=== PATIENT | female | born 1975 | race Caucasian/White ===

== ENCOUNTER 2016-12-29 13:18 | Inpatient (IN) | payer MEDICARE ==
[~2016-12-29] VITALS: Ht 160 cm; Wt 64.9 kg
[~2016-12-29 13:18] MED LIST: ACET-2902 PO; DIVA500T52 PO; FLUD25I IM; HALO5TAB23 PO; PANT40TA PO; TRIH5TAB2 PO
[2016-12-29 15:47] VITALS: BP 118/76
[2016-12-29] MEDS ORDERED: ZOLPIDEM TARTRATE 10 MG TABLET PO PRN (16:00)
[2016-12-29 16:30] VITALS: BP 118/78
[2016-12-29] MEDS ORDERED: FluPHENAZine DECANOATE 25 MG/ML IM SCH (18:30)
[2016-12-29] MEDS: DIVALPROEX SODIUM 500 MG ER TABLET PO SCH (20:00)
[2016-12-30 04:16] VITALS: BP 122/76
[2016-12-30 08:06] LABS: BASOPHILS # (AUTO) 0.01 K/uL (0.00-0.20); BASOPHILS % (AUTO) 0.2 % (0.0-2.0); EOSINOPHILS # (AUTO) 0.11 K/uL (0.00-0.70); EOSINOPHILS % (AUTO) 1.67 % (1.0-6.0); HEMATOCRIT 40.6 % (36-46); HEMOGLOBIN 13.4 g/dL (12.0-16.0); LYMPHOCYTES # (AUTO) 3.8 K/uL (1.0-4.8); LYMPHOCYTES % (AUTO) 55.5 % (22.0-44.0); MEAN CORPUSCULAR VOLUME 94 fL (80-100); MONOCYTES # (AUTO) 0.6 K/uL (0.1-1.0); MONOCYTES % (AUTO) 9.1 % (2.0-9.0); NEUTROPHILS # (AUTO) 2.3 K/uL (1.8-7.7); NEUTROPHILS % (AUTO) 33.5 % (40.0-70.0); PLATELET COUNT (AUTO) 247 K/uL (150-450); RED BLOOD CELL COUNT(AUTO) 4.32 MIL/uL (4.00-5.20); RED CELL DISTRIBUTION WIDTH 13.6 % (11.5-14.5); WHITE BLOOD COUNT (AUTO) 6.8 K/uL (4.5-11.0)
[2016-12-30] MEDS: TRIHEXYPHENIDYL HCL 5 MG TABLET PO SCH ×3 (08:13→16:17)
[2016-12-30] MEDS: DIVALPROEX SODIUM 500 MG ER TABLET PO SCH ×2 (08:13→20:19)
[2016-12-30 08:32] LABS: HEMOGLOBIN A1C 5.2 % (4.5-6.2)
[2016-12-30 08:47] LABS: ALANINE AMINOTRANSFERASE 24 U/L (12-78); ALBUMIN 3.5 g/dL (3.4-5.0); ANION GAP 10 mmol/L (8-16); ASPARTATE AMINOTRANSFERASE 17 U/L (15-37); BILIRUBIN,TOTAL 0.3 mg/dL (0.1-1.0); CALCIUM, TOTAL 9.3 mg/dL (8.8-10.5); CARBON DIOXIDE 28 mmol/L (22-29); CHLORIDE 104 mmol/L (98-107); CHOL/HDL RATIO 4.3 (3.9-5.7); CREATINE KINASE, TOTAL 63 U/L (26-192); CREATININE 0.74 mg/dL (0.60-1.30); GLOMERULAR FILTR. RATE CALC > 60 mL/min (>60); POTASSIUM 4.2 mmol/L (3.5-5.1); SODIUM SERUM 142 mmol/L (136-145); TOTAL PROTEIN, SERUM 6.6 g/dL (6.4-8.2); UREA NITROGEN, BLOOD 13 mg/dL (7-18); VALPROIC ACID 58 mcg/mL (50-100)
[2016-12-30 09:40] VITALS: BP 104/58
[2016-12-30 16:00] VITALS: BP 98/74
[2016-12-31 06:42] VITALS: BP 102/68
[2016-12-31] MEDS: TRIHEXYPHENIDYL HCL 5 MG TABLET PO SCH ×3 (08:28→16:19)
[2016-12-31] MEDS: DIVALPROEX SODIUM 500 MG ER TABLET PO SCH ×2 (08:28→20:12)
[2016-12-31 08:58] VITALS: BP 110/71
[2016-12-31 12:03] LABS: HEPATITIS Bs ANTIGEN SCREEN P Negative (Negative); HEPATITIS C AB SCREEN <0.1 s/co ratio (0.0-0.9)
[2016-12-31 16:00] VITALS: BP 106/72
[2017-01-01 06:17] VITALS: BP 110/76
[2017-01-01 08:38] VITALS: BP 106/59
[2017-01-01] MEDS: DIVALPROEX SODIUM 500 MG ER TABLET PO SCH ×2 (09:01→20:08)
[2017-01-01] MEDS: TRIHEXYPHENIDYL HCL 5 MG TABLET PO SCH ×3 (09:01→16:26)
[2017-01-01 16:22] VITALS: BP 106/68
[2017-01-02 02:50] VITALS: BP 111/70
[2017-01-02] MEDS: DIVALPROEX SODIUM 500 MG ER TABLET PO SCH ×2 (08:22→20:10)
[2017-01-02] MEDS: TRIHEXYPHENIDYL HCL 5 MG TABLET PO SCH ×3 (08:22→16:12)
[2017-01-02 08:44] VITALS: BP 100/61
[2017-01-02] MEDS ORDERED: ACETAMINOPHEN 325 MG TABLET PO PRN (12:15)
[2017-01-02 16:13] VITALS: BP 101/60
[2017-01-03 05:57] VITALS: BP 107/61
[2017-01-03] MEDS: TRIHEXYPHENIDYL HCL 5 MG TABLET PO SCH ×3 (09:10→16:32)
[2017-01-03] MEDS: DIVALPROEX SODIUM 500 MG ER TABLET PO SCH ×2 (09:10→20:43)
[2017-01-03 09:20] VITALS: BP 101/48
[2017-01-03] MEDS ORDERED: BISACODYL 5 MG EC TABLET PO PRN (13:45)
[2017-01-03 16:00] VITALS: BP 139/90
[2017-01-03] MEDS: LORazepam 2 MG TABLET PO PRN (16:32)
[2017-01-04 02:24] VITALS: BP 109/68
[2017-01-04 08:15] VITALS: BP 102/60
[2017-01-04] MEDS: TRIHEXYPHENIDYL HCL 5 MG TABLET PO SCH ×3 (09:30→16:40)
[2017-01-04] MEDS: DIVALPROEX SODIUM 500 MG ER TABLET PO SCH ×2 (09:31→20:14)
[2017-01-04 16:19] VITALS: BP 115/70
[2017-01-05 00:25] VITALS: BP 107/74
[2017-01-05] MEDS: TRIHEXYPHENIDYL HCL 5 MG TABLET PO SCH ×3 (08:38→16:15)
[2017-01-05] MEDS: DIVALPROEX SODIUM 500 MG ER TABLET PO SCH ×2 (08:38→20:20)
[2017-01-05 08:55] VITALS: BP 109/58
[2017-01-05] MEDS ORDERED: IBUPROFEN 600 MG TABLET PO PRN (10:30)
[2017-01-05 16:15] VITALS: BP 126/82
[2017-01-05] MEDS: LORazepam 2 MG TABLET PO PRN (16:15)
[2017-01-06] VITALS: BP 100/78
[2017-01-06 08:24] VITALS: BP 99/53
[2017-01-06] MEDS: TRIHEXYPHENIDYL HCL 5 MG TABLET PO SCH ×3 (08:55→16:13)
[2017-01-06] MEDS: DIVALPROEX SODIUM 500 MG ER TABLET PO SCH ×2 (08:55→21:26)
[2017-01-06 16:16] VITALS: BP 108/60
[2017-01-06] MEDS: LORazepam 2 MG TABLET PO PRN (21:24)
[2017-01-07 01:25] VITALS: BP 127/69
[2017-01-07 08:23] VITALS: BP 105/64
[2017-01-07] MEDS: TRIHEXYPHENIDYL HCL 5 MG TABLET PO SCH ×3 (09:51→16:02)
[2017-01-07] MEDS: DIVALPROEX SODIUM 500 MG ER TABLET PO SCH ×2 (09:51→20:14)
[2017-01-07] MEDS: LORazepam 2 MG TABLET PO PRN (16:02)
[2017-01-07 16:30] VITALS: BP 115/68
[2017-01-08 06:50] VITALS: BP 110/65
[2017-01-08 08:39] VITALS: BP 113/59
[2017-01-08] MEDS: DIVALPROEX SODIUM 500 MG ER TABLET PO SCH ×2 (09:45→21:19)
[2017-01-08] MEDS: TRIHEXYPHENIDYL HCL 5 MG TABLET PO SCH ×3 (09:45→16:39)
[2017-01-08 16:23] VITALS: BP 104/65
[2017-01-08] MEDS ORDERED: LORazepam 2 MG TABLET PO PRN (20:00)
[2017-01-08] MEDS ORDERED: ZOLPIDEM TARTRATE 10 MG TABLET PO PRN (20:00)
[2017-01-09 08:15] VITALS: BP 99/51
[2017-01-09] MEDS: DIVALPROEX SODIUM 500 MG ER TABLET PO SCH (08:49)
[2017-01-09] MEDS: TRIHEXYPHENIDYL HCL 5 MG TABLET PO SCH ×2 (08:49→13:04)
[2017-01-09] MEDS ORDERED: TRIH5TAB2 PO (13:57)
[2017-01-09] MEDS ORDERED: DIVA500T52 PO ×2 (13:57)
== END 2017-01-09 20:31 | disposition home or self-care (01) | DRG 885 ==
LOC: B3A 16:09
PROVIDERS: ADMIT Psychiatry & Neurology Psychiatry; ATTEND Psychiatry & Neurology Psychiatry
DX: F25.0 Schizoaffective disorder, bipolar type (principal); E78.1 Pure hyperglyceridemia; F41.9 Anxiety disorder, unspecified; F15.90 Other stimulant use, unspecified, uncomplicated; F60.9 Personality disorder, unspecified; F17.200 Nicotine dependence, unspecified, uncomplicated; R51 Headache; E87.6 Hypokalemia; K21.9 Gastro-esophageal reflux disease without esophagitis; K59.00 Constipation, unspecified; Z72.89 Other problems related to lifestyle; Z88.1 Allergy status to other antibiotic agents; Z79.899 Other long term (current) drug therapy
CPT/HCPCS: 80074; 82306; 82607; 82746; 83036; 83735; 84436; 84439; 86592; 87081; J2680

== ENCOUNTER 2018-01-29 08:44 | Inpatient (IN) | payer MEDICARE ==
[~2018-01-29] VITALS: Ht 157.5 cm; Wt 72.1 kg
[~2018-01-29 08:44] MED LIST changes: -ACET-2902 PO; -HALO5TAB23 PO; -PANT40TA PO
[2018-01-29 09:58] LABS: BASOPHILS % (AUTO) 0.9 % (0.0-2.0); EOSINOPHILS % (AUTO) 2.6 % (1.0-6.0); HEMATOCRIT 42.6 % (36-46); HEMOGLOBIN 14.6 g/dL (12.0-16.0); LYMPHOCYTES # (AUTO) 2.6 K/uL (1.0-4.8); LYMPHOCYTES % (AUTO) 37.3 % (22.0-44.0); MEAN CORPUSCULAR HEMOGLOBIN 30.2 pg (26.0-34.0); MEAN CORPUSCULAR HGB CONC 34.2 G/dL (31.0-37.0); MEAN CORPUSCULAR VOLUME 88 fL (80-100); MONOCYTES # (AUTO) 0.4 K/uL (0.1-1.0); MONOCYTES % (AUTO) 6.3 % (2.0-9.0); NEUTROPHILS # (AUTO) 3.7 K/uL (1.8-7.7); NEUTROPHILS % (AUTO) 52.9 % (40.0-70.0); PLATELET COUNT (AUTO) 281 K/uL (150-450); RED BLOOD CELL COUNT(AUTO) 4.82 MIL/uL (4.00-5.20); RED CELL DISTRIBUTION WIDTH 13.6 % (11.5-14.5)
[2018-01-29 10:07] LABS: ANION GAP 8 mmol/L (8-16); CALCIUM, TOTAL 8.4 mg/dL (8.8-10.5); CARBON DIOXIDE 27 mmol/L (22-29); CHLORIDE 107 mmol/L (98-107); CREATININE 0.54 mg/dL (0.60-1.30); GLOMERULAR FILTR. RATE CALC > 60 mL/min (>60); GLUCOSE,RANDOM 161 mg/dL (70-110); POTASSIUM 3.5 mmol/L (3.5-5.1); SODIUM SERUM 142 mmol/L (136-145); UREA NITROGEN, BLOOD 16 mg/dL (7-18)
[2018-01-29 10:12] LABS: ALANINE AMINOTRANSFERASE 21 U/L (12-78); ALBUMIN 3.3 g/dL (3.4-5.0); ALKALINE PHOSPHATASE 61 U/L (46-116); ASPARTATE AMINOTRANSFERASE 17 U/L (15-37); BILIRUBIN,TOTAL 0.3 mg/dL (0.1-1.0); TOTAL PROTEIN, SERUM 6.7 g/dL (6.4-8.2)
[2018-01-29] MEDS ORDERED: ACETAMINOPHEN 325 MG TABLET PO PRN (10:30)
[2018-01-29] MEDS ORDERED: IBUPROFEN 400 MG TABLET PO PRN (10:30)
[2018-01-29] MEDS ORDERED: DiphenhydrAMINE HCL 50 MG/ML VIAL IM ONE (10:45)
[2018-01-29] MEDS ORDERED: HALOPERIDOL LACTATE 5 MG/ML VIAL IM ONE (10:45)
[2018-01-29] MEDS ORDERED: LORazepam 2 MG/ML VIAL IM ONE (10:45)
[2018-01-29 16:20] VITALS: BP 110/60
[2018-01-29] MEDS ORDERED: PETROLATUM,WHITE 71 GM JELLY TP PRN (16:30)
[2018-01-29] MEDS ORDERED: GuaiFENesin/D-METHORPHAN [SUGAR-FREE] 200-20MG/10 ML SYRUP UDCUP PO PRN (16:30)
[2018-01-29] MEDS ORDERED: LOPERAMIDE HCL 2 MG CAPSULE PO PRN (16:30)
[2018-01-29] MEDS ORDERED: ALBUTEROL SULFATE HFA 90 MCG/PUFF 8 GM INHALER IH PRN (16:30)
[2018-01-29] MEDS ORDERED: DOCUSATE SODIUM 100 MG CAPSULE PO PRN (16:30)
[2018-01-29] MEDS ORDERED: MAGNESIUM HYDROXIDE SUSPENSION 30 ML UDCUP PO PRN (16:30)
[2018-01-29] MEDS ORDERED: CloNIDine HCL 0.1 MG TABLET PO PRN (16:30)
[2018-01-30 08:36] VITALS: BP 112/73
[2018-01-30] MEDS: LORazepam 2 MG TABLET PO PRN ×2 (14:35→21:00)
[2018-01-30] MEDS: RisperiDONE 2 MG TABLET PO SCH (20:57)
[2018-01-30] MEDS: DIVALPROEX SODIUM 500 MG DR TABLET PO SCH (20:57)
[2018-01-31 06:32] VITALS: BP 110/67
[2018-01-31 08:49] VITALS: BP 106/78
[2018-01-31] MEDS: DIVALPROEX SODIUM 500 MG DR TABLET PO SCH ×2 (09:05→21:00)
[2018-01-31] MEDS: RisperiDONE 2 MG TABLET PO SCH (21:00)
[2018-02-01 04:15] VITALS: BP 101/71
[2018-02-01 08:14] VITALS: BP 108/67
[2018-02-01 08:15] VITALS: BP 146/78
[2018-02-01] MEDS: DIVALPROEX SODIUM 500 MG DR TABLET PO SCH ×2 (08:15→20:37)
[2018-02-01] MEDS: RisperiDONE 2 MG TABLET PO SCH (20:37)
[2018-02-02 05:26] VITALS: BP 136/88
[2018-02-02 08:18] VITALS: BP 108/76
[2018-02-02] MEDS: DIVALPROEX SODIUM 500 MG DR TABLET PO SCH ×2 (09:00→21:00)
[2018-02-02] MEDS: RisperiDONE 2 MG TABLET PO SCH (21:00)
[2018-02-03] MEDS: DIVALPROEX SODIUM 500 MG DR TABLET PO SCH ×2 (09:27→20:59)
[2018-02-03] MEDS: RisperiDONE 2 MG TABLET PO SCH (20:59)
[2018-02-04 08:14] VITALS: BP 122/80
[2018-02-04] MEDS: DIVALPROEX SODIUM 500 MG DR TABLET PO SCH ×2 (08:15→20:49)
[2018-02-04] MEDS: RisperiDONE 2 MG TABLET PO SCH (20:49)
[2018-02-05 08:37] VITALS: BP 117/74
[2018-02-05] MEDS: DIVALPROEX SODIUM 500 MG DR TABLET PO SCH ×2 (09:31→20:47)
[2018-02-05] MEDS ORDERED: HALOPERIDOL LACTATE 5 MG/ML VIAL IM PRN (11:15)
[2018-02-05] MEDS: RisperiDONE 2 MG TABLET PO SCH ×2 (11:23→20:47)
[2018-02-05] MEDS: QUEtiapine FUMARATE 100 MG TABLET PO PRN (16:40)
[2018-02-06] MEDS: DIVALPROEX SODIUM 500 MG DR TABLET PO SCH ×2 (08:32→20:32)
[2018-02-06] MEDS: RisperiDONE 2 MG TABLET PO SCH ×2 (08:32→20:32)
[2018-02-06 10:06] VITALS: BP 120/69
[2018-02-07 05:02] VITALS: BP 114/76
[2018-02-07 08:40] VITALS: BP 125/78
[2018-02-07] MEDS: RisperiDONE 2 MG TABLET PO SCH ×2 (10:06→21:12)
[2018-02-07] MEDS: DIVALPROEX SODIUM 500 MG DR TABLET PO SCH ×2 (10:06→21:12)
[2018-02-07 17:34] VITALS: BP 118/63
[2018-02-08 07:11] VITALS: BP 112/68
[2018-02-08 08:00] VITALS: BP 127/54
[2018-02-08] MEDS: DIVALPROEX SODIUM 500 MG DR TABLET PO SCH ×2 (08:20→21:11)
[2018-02-08] MEDS: RisperiDONE 2 MG TABLET PO SCH ×2 (08:20→21:11)
[2018-02-08] MEDS: LORazepam 1 MG TABLET PO PRN ×2 (10:22→17:07)
[2018-02-08 17:05] VITALS: BP 122/69
[2018-02-08] MEDS: QUEtiapine FUMARATE 100 MG TABLET PO PRN (17:07)
[2018-02-09 04:30] VITALS: BP 105/80
[2018-02-09] MEDS: LORazepam 1 MG TABLET PO PRN (07:03)
[2018-02-09 08:43] VITALS: BP 112/80
[2018-02-09] MEDS: RisperiDONE 2 MG TABLET PO SCH ×2 (09:20→21:27)
[2018-02-09] MEDS: DIVALPROEX SODIUM 500 MG DR TABLET PO SCH ×2 (09:20→21:27)
[2018-02-09 16:20] VITALS: BP 117/95
[2018-02-10 07:04] VITALS: BP 118/78
[2018-02-10] MEDS: DIVALPROEX SODIUM 500 MG DR TABLET PO SCH ×2 (08:14→20:38)
[2018-02-10] MEDS: RisperiDONE 2 MG TABLET PO SCH ×2 (08:14→20:38)
[2018-02-10] MEDS: LORazepam 1 MG TABLET PO PRN (08:19)
[2018-02-10 08:56] VITALS: BP 135/77
[2018-02-11 04:54] VITALS: BP 135/82
[2018-02-11] MEDS: RisperiDONE 2 MG TABLET PO SCH ×2 (08:09→20:29)
[2018-02-11] MEDS: DIVALPROEX SODIUM 500 MG DR TABLET PO SCH ×2 (08:09→20:29)
[2018-02-11] MEDS: LORazepam 1 MG TABLET PO PRN ×2 (08:11→16:17)
[2018-02-11 08:45] VITALS: BP 109/72
[2018-02-11 16:00] VITALS: BP 105/62
[2018-02-11] MEDS: ZOLPIDEM TARTRATE 10 MG TABLET PO PRN (20:29)
[2018-02-12] MEDS: LORazepam 1 MG TABLET PO PRN ×3 (06:41→15:59)
[2018-02-12] MEDS: RisperiDONE 2 MG TABLET PO SCH ×2 (08:45→20:25)
[2018-02-12] MEDS: DIVALPROEX SODIUM 500 MG DR TABLET PO SCH ×2 (08:45→20:25)
[2018-02-12 16:14] VITALS: BP 114/71
[2018-02-13] MEDS: RisperiDONE 2 MG TABLET PO SCH ×2 (08:24→20:17)
[2018-02-13] MEDS: DIVALPROEX SODIUM 500 MG DR TABLET PO SCH ×2 (08:25→20:17)
[2018-02-13] MEDS: LORazepam 1 MG TABLET PO PRN (09:34)
[2018-02-13 09:40] VITALS: BP 112/72
[2018-02-14 05:07] VITALS: BP 110/70
[2018-02-14 08:11] VITALS: BP 111/74
[2018-02-14] MEDS: DIVALPROEX SODIUM 500 MG DR TABLET PO SCH ×2 (08:20→20:42)
[2018-02-14] MEDS: RisperiDONE 2 MG TABLET PO SCH ×2 (08:20→20:42)
[2018-02-14] MEDS: LORazepam 1 MG TABLET PO PRN ×2 (08:50→21:02)
[2018-02-15 02:50] VITALS: BP 117/72
[2018-02-15 08:22] VITALS: BP 109/81
[2018-02-15] MEDS: DIVALPROEX SODIUM 500 MG DR TABLET PO SCH ×2 (08:52→20:58)
[2018-02-15] MEDS: RisperiDONE 2 MG TABLET PO SCH (08:52)
[2018-02-15 16:07] VITALS: BP 120/78
[2018-02-15] MEDS: LORazepam 1 MG TABLET PO PRN (16:32)
[2018-02-15] MEDS: RisperiDONE 3 MG TABLET PO SCH (20:59)
[2018-02-16 07:05] VITALS: BP 116/84
[2018-02-16] MEDS: RisperiDONE 3 MG TABLET PO SCH ×2 (09:07→20:14)
[2018-02-16] MEDS: DIVALPROEX SODIUM 500 MG DR TABLET PO SCH ×2 (09:07→20:14)
[2018-02-16 09:13] VITALS: BP 107/65
[2018-02-16] MEDS: LORazepam 1 MG TABLET PO PRN (09:57)
[2018-02-16 16:10] VITALS: BP 105/68
[2018-02-17 04:38] VITALS: BP 106/72
[2018-02-17 08:14] VITALS: BP 123/65
[2018-02-17] MEDS: RisperiDONE 3 MG TABLET PO SCH ×2 (08:14→20:53)
[2018-02-17] MEDS: DIVALPROEX SODIUM 500 MG DR TABLET PO SCH ×2 (08:14→20:53)
[2018-02-17] MEDS: LORazepam 1 MG TABLET PO PRN (08:54)
[2018-02-17 16:30] VITALS: BP 115/66
[2018-02-18 08:28] VITALS: BP 123/81
[2018-02-18] MEDS: RisperiDONE 3 MG TABLET PO SCH ×2 (08:29→20:18)
[2018-02-18] MEDS: DIVALPROEX SODIUM 500 MG DR TABLET PO SCH ×2 (08:30→20:19)
[2018-02-18] MEDS: LORazepam 1 MG TABLET PO PRN ×2 (08:30→16:31)
[2018-02-19 09:03] VITALS: BP 105/62
[2018-02-19] MEDS: DIVALPROEX SODIUM 500 MG DR TABLET PO SCH ×2 (09:07→21:03)
[2018-02-19] MEDS: RisperiDONE 3 MG TABLET PO SCH ×2 (09:07→21:03)
[2018-02-19] MEDS: LORazepam 1 MG TABLET PO PRN (09:37)
[2018-02-19 16:20] VITALS: BP 119/58
[2018-02-20 06:14] VITALS: BP 124/72
[2018-02-20] MEDS: DIVALPROEX SODIUM 500 MG DR TABLET PO SCH ×2 (08:10→20:54)
[2018-02-20] MEDS: RisperiDONE 3 MG TABLET PO SCH ×2 (08:11→20:54)
[2018-02-20] MEDS: LORazepam 1 MG TABLET PO PRN (08:15)
[2018-02-20 08:16] VITALS: BP 128/71
[2018-02-20 16:00] VITALS: BP 108/64
[2018-02-21 02:29] VITALS: BP 125/76
[2018-02-21 08:23] VITALS: BP 126/82
[2018-02-21] MEDS: RisperiDONE 3 MG TABLET PO SCH ×2 (08:28→20:35)
[2018-02-21] MEDS: DIVALPROEX SODIUM 500 MG DR TABLET PO SCH ×2 (08:28→20:35)
[2018-02-21] MEDS: LORazepam 1 MG TABLET PO PRN ×2 (08:31→16:42)
[2018-02-21 16:27] VITALS: BP 132/87
[2018-02-22 07:00] VITALS: BP 127/78
[2018-02-22] MEDS: DIVALPROEX SODIUM 500 MG DR TABLET PO SCH ×2 (08:11→20:39)
[2018-02-22] MEDS: RisperiDONE 3 MG TABLET PO SCH ×2 (08:11→20:39)
[2018-02-22] MEDS: LORazepam 1 MG TABLET PO PRN ×2 (08:18→16:35)
[2018-02-22] MEDS: MUPIROCIN CALCIUM 2% 22 GM OINTMENT NASAL SCH (21:05)
[2018-02-22] MEDS: COLLOIDAL OATMEAL/DIMETH 227 GM LOTION TP SCH (21:06)
[2018-02-23] MEDS: RisperiDONE 3 MG TABLET PO SCH ×2 (09:06→20:48)
[2018-02-23] MEDS: DIVALPROEX SODIUM 500 MG DR TABLET PO SCH ×2 (09:06→20:48)
[2018-02-23] MEDS: MUPIROCIN CALCIUM 2% 22 GM OINTMENT NASAL SCH ×2 (09:09→17:10)
[2018-02-23] MEDS: COLLOIDAL OATMEAL/DIMETH 227 GM LOTION TP SCH ×3 (09:09→17:10)
[2018-02-23 12:40] VITALS: BP 109/81
[2018-02-23] MEDS: LORazepam 1 MG TABLET PO PRN (12:42)
[2018-02-23] MEDS: QUEtiapine FUMARATE 100 MG TABLET PO PRN (12:42)
[2018-02-23 16:22] VITALS: BP 122/84
[2018-02-24 06:20] VITALS: BP 105/68
[2018-02-24] MEDS: DIVALPROEX SODIUM 500 MG DR TABLET PO SCH ×2 (07:59→20:05)
[2018-02-24] MEDS: RisperiDONE 3 MG TABLET PO SCH ×2 (07:59→20:05)
[2018-02-24] MEDS: MUPIROCIN CALCIUM 2% 22 GM OINTMENT NASAL SCH ×2 (08:00→17:07)
[2018-02-24] MEDS: COLLOIDAL OATMEAL/DIMETH 227 GM LOTION TP SCH ×3 (08:00→17:07)
[2018-02-24 08:18] VITALS: BP 142/74
[2018-02-24] MEDS: LORazepam 1 MG TABLET PO PRN (08:31)
[2018-02-24 16:12] VITALS: BP 125/65
[2018-02-25 06:11] VITALS: BP 101/71
[2018-02-25 08:41] VITALS: BP 129/74
[2018-02-25] MEDS: RisperiDONE 3 MG TABLET PO SCH ×2 (08:53→20:35)
[2018-02-25] MEDS: MUPIROCIN CALCIUM 2% 22 GM OINTMENT NASAL SCH ×2 (08:54→16:01)
[2018-02-25] MEDS: COLLOIDAL OATMEAL/DIMETH 227 GM LOTION TP SCH ×3 (08:54→16:01)
[2018-02-25] MEDS: DIVALPROEX SODIUM 500 MG DR TABLET PO SCH ×2 (08:54→20:36)
[2018-02-25] MEDS: QUEtiapine FUMARATE 100 MG TABLET PO PRN (12:19)
[2018-02-25 16:13] VITALS: BP 109/68
[2018-02-26 05:27] VITALS: BP 119/63
[2018-02-26] MEDS: RisperiDONE 3 MG TABLET PO SCH ×2 (08:16→20:39)
[2018-02-26] MEDS: DIVALPROEX SODIUM 500 MG DR TABLET PO SCH ×2 (08:16→20:40)
[2018-02-26] MEDS: COLLOIDAL OATMEAL/DIMETH 227 GM LOTION TP SCH ×3 (08:22→16:52)
[2018-02-26] MEDS: MUPIROCIN CALCIUM 2% 22 GM OINTMENT NASAL SCH ×2 (08:22→16:51)
[2018-02-26] MEDS: LORazepam 1 MG TABLET PO PRN (11:14)
[2018-02-26 16:27] VITALS: BP 105/60
[2018-02-27 08:45] VITALS: BP 121/76
[2018-02-27] MEDS: DIVALPROEX SODIUM 500 MG DR TABLET PO SCH ×2 (08:47→20:19)
[2018-02-27] MEDS: MUPIROCIN CALCIUM 2% 22 GM OINTMENT NASAL SCH (08:48)
[2018-02-27] MEDS: COLLOIDAL OATMEAL/DIMETH 227 GM LOTION TP SCH ×3 (08:48→16:35)
[2018-02-27] MEDS: RisperiDONE 3 MG TABLET PO SCH ×2 (08:48→20:19)
[2018-02-27] MEDS: QUEtiapine FUMARATE 100 MG TABLET PO PRN (09:41)
[2018-02-27] MEDS ORDERED: PALIPERIDONE PALMITATE 234 MG/1.5 ML SYRINGE IM ONE (16:00)
[2018-02-27] MEDS: LORazepam 1 MG TABLET PO PRN (16:35)
[2018-02-27 16:48] VITALS: BP 115/65
[2018-02-28 08:13] VITALS: BP 131/76
[2018-02-28] MEDS: DIVALPROEX SODIUM 500 MG DR TABLET PO SCH ×2 (09:01→20:13)
[2018-02-28] MEDS: COLLOIDAL OATMEAL/DIMETH 227 GM LOTION TP SCH ×3 (09:01→16:17)
[2018-02-28] MEDS: RisperiDONE 3 MG TABLET PO SCH ×2 (09:01→20:13)
[2018-02-28] MEDS: LORazepam 1 MG TABLET PO PRN (14:14)
[2018-02-28 16:10] VITALS: BP 109/72
[2018-02-28] MEDS: QUEtiapine FUMARATE 100 MG TABLET PO PRN (16:17)
[2018-03-01] MEDS: DIVALPROEX SODIUM 500 MG DR TABLET PO SCH ×2 (08:30→20:07)
[2018-03-01] MEDS: COLLOIDAL OATMEAL/DIMETH 227 GM LOTION TP SCH ×3 (08:30→16:20)
[2018-03-01] MEDS: RisperiDONE 3 MG TABLET PO SCH ×2 (08:30→20:07)
[2018-03-01] MEDS: LORazepam 1 MG TABLET PO PRN (10:29)
[2018-03-01] MEDS ORDERED: TUBERCULIN, PURIFIED PROTEIN DERIVATIVE 5 TU/0.1 ML SYG ID ONE (10:45)
[2018-03-02] MEDS: RisperiDONE 3 MG TABLET PO SCH ×2 (09:36→20:05)
[2018-03-02] MEDS: COLLOIDAL OATMEAL/DIMETH 227 GM LOTION TP SCH ×3 (09:37→17:02)
[2018-03-02] MEDS: DIVALPROEX SODIUM 500 MG DR TABLET PO SCH ×2 (09:38→20:05)
[2018-03-02] MEDS: LORazepam 1 MG TABLET PO PRN ×2 (10:11→16:26)
[2018-03-02 10:38] VITALS: BP 115/75
[2018-03-02 16:19] VITALS: BP 109/68
[2018-03-02] MEDS: QUEtiapine FUMARATE 100 MG TABLET PO PRN (16:59)
[2018-03-03 01:35] VITALS: BP 125/75
[2018-03-03] MEDS: RisperiDONE 3 MG TABLET PO SCH ×2 (08:05→20:57)
[2018-03-03] MEDS: COLLOIDAL OATMEAL/DIMETH 227 GM LOTION TP SCH ×3 (08:05→17:21)
[2018-03-03] MEDS: DIVALPROEX SODIUM 500 MG DR TABLET PO SCH ×2 (08:05→20:57)
[2018-03-03 08:18] VITALS: BP 106/61
[2018-03-03] MEDS ORDERED: PALIPERIDONE PALMITATE 156 MG/ML SYRINGE IM ONE (09:00)
[2018-03-03] MEDS: LORazepam 1 MG TABLET PO PRN (14:45)
[2018-03-03 16:19] VITALS: BP 121/67
[2018-03-03] MEDS: QUEtiapine FUMARATE 100 MG TABLET PO PRN (17:21)
[2018-03-03] MEDS: IBUPROFEN 400 MG TABLET PO PRN (21:26)
[2018-03-04 06:42] VITALS: BP 102/65
[2018-03-04] MEDS: COLLOIDAL OATMEAL/DIMETH 227 GM LOTION TP SCH ×3 (08:02→16:40)
[2018-03-04] MEDS: RisperiDONE 3 MG TABLET PO SCH ×2 (08:03→21:20)
[2018-03-04] MEDS: DIVALPROEX SODIUM 500 MG DR TABLET PO SCH ×2 (08:03→21:19)
[2018-03-04 08:30] VITALS: BP 105/62
[2018-03-04] MEDS: ACETAMINOPHEN 325 MG TABLET PO PRN (12:32)
[2018-03-04] MEDS: LORazepam 1 MG TABLET PO PRN (12:32)
[2018-03-04 16:31] VITALS: BP 109/62
[2018-03-05 03:39] VITALS: BP 117/68
[2018-03-05 08:00] VITALS: BP 94/54
[2018-03-05] MEDS: DIVALPROEX SODIUM 500 MG DR TABLET PO SCH ×2 (09:10→20:44)
[2018-03-05] MEDS: RisperiDONE 3 MG TABLET PO SCH ×2 (09:10→20:44)
[2018-03-05] MEDS: COLLOIDAL OATMEAL/DIMETH 227 GM LOTION TP SCH ×3 (09:11→16:22)
[2018-03-05] MEDS: LORazepam 1 MG TABLET PO PRN ×2 (09:56→16:23)
[2018-03-05] MEDS: ACETAMINOPHEN 325 MG TABLET PO PRN (09:57)
[2018-03-05] MEDS: QUEtiapine FUMARATE 100 MG TABLET PO PRN (16:23)
[2018-03-05 17:02] VITALS: BP 120/82
[2018-03-06 01:00] VITALS: BP 111/70
[2018-03-06] MEDS: COLLOIDAL OATMEAL/DIMETH 227 GM LOTION TP SCH ×3 (08:23→17:00)
[2018-03-06] MEDS: RisperiDONE 3 MG TABLET PO SCH ×2 (08:26→20:13)
[2018-03-06] MEDS: DIVALPROEX SODIUM 500 MG DR TABLET PO SCH ×2 (08:26→20:13)
[2018-03-06] MEDS: LORazepam 1 MG TABLET PO PRN (12:31)
[2018-03-06 13:21] VITALS: BP 108/65
[2018-03-06 16:00] VITALS: BP 110/63
[2018-03-07 01:42] VITALS: BP 119/74
[2018-03-07 03:50] VITALS: BP 108/74
[2018-03-07] MEDS: ACETAMINOPHEN 325 MG TABLET PO PRN (04:09)
[2018-03-07 08:24] VITALS: BP 102/66
[2018-03-07] MEDS: DIVALPROEX SODIUM 500 MG DR TABLET PO SCH ×2 (08:46→20:33)
[2018-03-07] MEDS: RisperiDONE 3 MG TABLET PO SCH ×2 (08:46→20:33)
[2018-03-07] MEDS: COLLOIDAL OATMEAL/DIMETH 227 GM LOTION TP SCH ×3 (08:47→17:07)
[2018-03-07] MEDS: LORazepam 1 MG TABLET PO PRN ×2 (11:23→17:07)
[2018-03-07 16:55] VITALS: BP 114/64
[2018-03-08 08:16] VITALS: BP 107/73
[2018-03-08] MEDS: LORazepam 1 MG TABLET PO PRN ×2 (08:43→16:43)
[2018-03-08] MEDS: RisperiDONE 3 MG TABLET PO SCH ×2 (08:44→20:23)
[2018-03-08] MEDS: COLLOIDAL OATMEAL/DIMETH 227 GM LOTION TP SCH ×3 (08:46→16:43)
[2018-03-08] MEDS: DIVALPROEX SODIUM 500 MG DR TABLET PO SCH ×2 (08:46→20:23)
[2018-03-08 16:00] VITALS: BP 109/69
[2018-03-09 02:43] VITALS: BP 107/74
[2018-03-09 08:14] VITALS: BP 103/69
[2018-03-09] MEDS: COLLOIDAL OATMEAL/DIMETH 227 GM LOTION TP SCH ×3 (09:22→16:03)
[2018-03-09] MEDS: LORazepam 1 MG TABLET PO PRN (09:23)
[2018-03-09] MEDS: DIVALPROEX SODIUM 500 MG DR TABLET PO SCH ×2 (09:23→20:28)
[2018-03-09] MEDS: ACETAMINOPHEN 325 MG TABLET PO PRN ×2 (09:23→17:50)
[2018-03-09] MEDS: RisperiDONE 3 MG TABLET PO SCH ×2 (09:23→20:28)
[2018-03-09 17:24] VITALS: BP 106/79
[2018-03-10 01:40] VITALS: BP 113/79
[2018-03-10] MEDS: IBUPROFEN 400 MG TABLET PO PRN ×2 (01:46→12:36)
[2018-03-10] MEDS: RisperiDONE 3 MG TABLET PO SCH ×2 (08:20→20:48)
[2018-03-10] MEDS: DIVALPROEX SODIUM 500 MG DR TABLET PO SCH ×2 (08:21→20:48)
[2018-03-10 08:22] VITALS: BP 97/70
[2018-03-10] MEDS: COLLOIDAL OATMEAL/DIMETH 227 GM LOTION TP SCH ×3 (08:22→17:48)
[2018-03-10] MEDS: QUEtiapine FUMARATE 100 MG TABLET PO PRN (10:59)
[2018-03-10] MEDS: LORazepam 1 MG TABLET PO PRN (10:59)
[2018-03-10 17:35] VITALS: BP 121/74
[2018-03-11 02:25] VITALS: BP 124/74
[2018-03-11] MEDS: IBUPROFEN 400 MG TABLET PO PRN ×2 (02:29→18:37)
[2018-03-11] MEDS: COLLOIDAL OATMEAL/DIMETH 227 GM LOTION TP SCH ×3 (08:42→17:00)
[2018-03-11] MEDS: LORazepam 1 MG TABLET PO PRN (08:42)
[2018-03-11] MEDS: RisperiDONE 3 MG TABLET PO SCH ×2 (08:42→21:08)
[2018-03-11] MEDS: DIVALPROEX SODIUM 500 MG DR TABLET PO SCH ×2 (08:42→21:09)
[2018-03-11 16:13] VITALS: BP 114/79
[2018-03-12 06:20] VITALS: BP 104/60
[2018-03-12] MEDS: IBUPROFEN 400 MG TABLET PO PRN ×2 (08:18→16:41)
[2018-03-12] MEDS: RisperiDONE 3 MG TABLET PO SCH ×2 (08:18→20:31)
[2018-03-12] MEDS: DIVALPROEX SODIUM 500 MG DR TABLET PO SCH ×2 (08:18→20:32)
[2018-03-12] MEDS: COLLOIDAL OATMEAL/DIMETH 227 GM LOTION TP SCH ×3 (08:18→16:41)
[2018-03-12] MEDS: LORazepam 1 MG TABLET PO PRN ×2 (08:18→16:40)
[2018-03-12 08:43] VITALS: BP 104/71
[2018-03-12 16:26] VITALS: BP 115/76
[2018-03-12] MEDS: ZOLPIDEM TARTRATE 10 MG TABLET PO PRN (20:31)
[2018-03-13 04:05] VITALS: BP 113/82
[2018-03-13] MEDS: COLLOIDAL OATMEAL/DIMETH 227 GM LOTION TP SCH ×3 (08:25→16:51)
[2018-03-13] MEDS: DIVALPROEX SODIUM 500 MG DR TABLET PO SCH ×2 (08:25→20:06)
[2018-03-13] MEDS: RisperiDONE 3 MG TABLET PO SCH ×2 (08:25→20:06)
[2018-03-13] MEDS: LORazepam 1 MG TABLET PO PRN (08:25)
[2018-03-13] MEDS: IBUPROFEN 400 MG TABLET PO PRN (08:34)
[2018-03-13 08:39] VITALS: BP 115/67
[2018-03-13 16:23] VITALS: BP 114/73
[2018-03-13] MEDS: ZOLPIDEM TARTRATE 10 MG TABLET PO PRN (20:39)
[2018-03-14 07:24] VITALS: BP 109/65
[2018-03-14] MEDS: RisperiDONE 3 MG TABLET PO SCH ×2 (08:13→20:35)
[2018-03-14] MEDS: DIVALPROEX SODIUM 500 MG DR TABLET PO SCH ×2 (08:14→20:35)
[2018-03-14 08:37] VITALS: BP 98/62
[2018-03-14] MEDS: IBUPROFEN 400 MG TABLET PO PRN (08:37)
[2018-03-14 08:52] VITALS: BP 98/62
[2018-03-14] MEDS: COLLOIDAL OATMEAL/DIMETH 227 GM LOTION TP SCH ×3 (09:35→16:35)
[2018-03-14] MEDS: LORazepam 1 MG TABLET PO PRN ×2 (10:18→16:35)
[2018-03-14 17:19] VITALS: BP 114/70
[2018-03-15 07:27] VITALS: BP 108/64
[2018-03-15 08:50] VITALS: BP 100/57
[2018-03-15] MEDS: DIVALPROEX SODIUM 500 MG DR TABLET PO SCH ×2 (09:05→20:19)
[2018-03-15] MEDS: RisperiDONE 3 MG TABLET PO SCH ×2 (09:05→20:18)
[2018-03-15] MEDS: IBUPROFEN 400 MG TABLET PO PRN ×2 (09:05→17:07)
[2018-03-15] MEDS: COLLOIDAL OATMEAL/DIMETH 227 GM LOTION TP SCH ×3 (09:07→16:09)
[2018-03-15] MEDS: LORazepam 1 MG TABLET PO PRN ×2 (10:09→16:10)
[2018-03-15 17:07] VITALS: BP 112/71
[2018-03-15] MEDS: ZOLPIDEM TARTRATE 10 MG TABLET PO PRN (20:27)
[2018-03-16 06:27] VITALS: BP 110/68
[2018-03-16] MEDS: COLLOIDAL OATMEAL/DIMETH 227 GM LOTION TP SCH ×3 (09:08→17:06)
[2018-03-16] MEDS: RisperiDONE 3 MG TABLET PO SCH ×2 (09:08→20:22)
[2018-03-16] MEDS: DIVALPROEX SODIUM 500 MG DR TABLET PO SCH ×2 (09:08→20:21)
[2018-03-16] MEDS: LORazepam 1 MG TABLET PO PRN ×2 (11:55→17:06)
[2018-03-16] MEDS: QUEtiapine FUMARATE 100 MG TABLET PO PRN (12:36)
[2018-03-17 00:28] VITALS: BP 111/83
[2018-03-17] MEDS: DIVALPROEX SODIUM 500 MG DR TABLET PO SCH ×2 (08:44→20:07)
[2018-03-17] MEDS: COLLOIDAL OATMEAL/DIMETH 227 GM LOTION TP SCH ×3 (08:44→16:38)
[2018-03-17] MEDS: RisperiDONE 3 MG TABLET PO SCH (08:44)
[2018-03-17] MEDS: IBUPROFEN 400 MG TABLET PO PRN (12:23)
[2018-03-17 16:12] VITALS: BP 127/71
[2018-03-18 06:42] VITALS: BP 122/75
[2018-03-18] MEDS: DIVALPROEX SODIUM 500 MG DR TABLET PO SCH ×2 (08:10→20:49)
[2018-03-18] MEDS: COLLOIDAL OATMEAL/DIMETH 227 GM LOTION TP SCH ×3 (08:10→16:33)
[2018-03-18 08:18] VITALS: BP 119/73
[2018-03-18] MEDS: LORazepam 1 MG TABLET PO PRN ×2 (10:48→16:33)
[2018-03-18] MEDS: QUEtiapine FUMARATE 100 MG TABLET PO PRN ×2 (12:26→16:33)
[2018-03-18 16:00] VITALS: BP 112/74
[2018-03-19 01:07] VITALS: BP 110/74
[2018-03-19 08:34] VITALS: BP 104/65
[2018-03-19] MEDS: DIVALPROEX SODIUM 500 MG DR TABLET PO SCH ×2 (09:05→20:17)
[2018-03-19] MEDS: COLLOIDAL OATMEAL/DIMETH 227 GM LOTION TP SCH ×3 (09:07→16:51)
[2018-03-19] MEDS: LORazepam 1 MG TABLET PO PRN ×2 (10:35→16:51)
[2018-03-19] MEDS: QUEtiapine FUMARATE 100 MG TABLET PO PRN (11:04)
[2018-03-19 16:00] VITALS: BP 132/88
[2018-03-19] MEDS: ZOLPIDEM TARTRATE 10 MG TABLET PO PRN (20:41)
[2018-03-20 00:53] VITALS: BP 119/77
[2018-03-20 08:19] VITALS: BP 101/63
[2018-03-20] MEDS: LORazepam 1 MG TABLET PO PRN ×2 (08:31→16:39)
[2018-03-20] MEDS: COLLOIDAL OATMEAL/DIMETH 227 GM LOTION TP SCH ×3 (08:31→16:38)
[2018-03-20] MEDS: DIVALPROEX SODIUM 500 MG DR TABLET PO SCH ×2 (08:32→20:55)
[2018-03-20 16:38] VITALS: BP 112/68
[2018-03-20] MEDS: QUEtiapine FUMARATE 100 MG TABLET PO PRN (16:39)
[2018-03-20] MEDS: ZOLPIDEM TARTRATE 10 MG TABLET PO PRN (20:55)
[2018-03-21] MEDS: DIVALPROEX SODIUM 500 MG DR TABLET PO SCH ×2 (08:04→20:28)
[2018-03-21] MEDS: COLLOIDAL OATMEAL/DIMETH 227 GM LOTION TP SCH ×3 (08:04→16:14)
[2018-03-21] MEDS: LORazepam 1 MG TABLET PO PRN ×2 (08:26→16:14)
[2018-03-21 08:42] VITALS: BP 100/60
[2018-03-21 16:07] VITALS: BP 117/86
[2018-03-21] MEDS: QUEtiapine FUMARATE 100 MG TABLET PO PRN (18:01)
[2018-03-22 00:29] VITALS: BP 103/70
[2018-03-22 08:28] VITALS: BP 100/59
[2018-03-22] MEDS: DIVALPROEX SODIUM 500 MG DR TABLET PO SCH ×2 (09:36→20:13)
[2018-03-22] MEDS: COLLOIDAL OATMEAL/DIMETH 227 GM LOTION TP SCH ×3 (09:36→17:20)
[2018-03-22] MEDS: LORazepam 1 MG TABLET PO PRN (17:10)
[2018-03-22] MEDS: QUEtiapine FUMARATE 100 MG TABLET PO PRN (17:11)
[2018-03-22 18:45] VITALS: BP 122/75
[2018-03-22] MEDS: ZOLPIDEM TARTRATE 10 MG TABLET PO PRN (20:12)
[2018-03-23 01:36] VITALS: BP 104/67
[2018-03-23] MEDS: QUEtiapine FUMARATE 100 MG TABLET PO PRN (08:10)
[2018-03-23] MEDS: LORazepam 1 MG TABLET PO PRN ×2 (08:11→16:12)
[2018-03-23] MEDS: DIVALPROEX SODIUM 500 MG DR TABLET PO SCH ×2 (08:11→20:00)
[2018-03-23] MEDS: COLLOIDAL OATMEAL/DIMETH 227 GM LOTION TP SCH ×3 (08:11→16:12)
[2018-03-23 16:14] VITALS: BP 103/69
[2018-03-23] MEDS: ZOLPIDEM TARTRATE 10 MG TABLET PO PRN (20:00)
[2018-03-24 04:48] VITALS: BP 120/76
[2018-03-24 08:00] VITALS: BP 109/72
[2018-03-24] MEDS: DIVALPROEX SODIUM 500 MG DR TABLET PO SCH ×2 (08:16→20:49)
[2018-03-24] MEDS: COLLOIDAL OATMEAL/DIMETH 227 GM LOTION TP SCH ×3 (08:16→16:11)
[2018-03-24] MEDS: LORazepam 1 MG TABLET PO PRN ×2 (08:28→16:11)
[2018-03-24 16:10] VITALS: BP 112/72
[2018-03-25 07:16] VITALS: BP 115/78
[2018-03-25 08:32] VITALS: BP 106/71
[2018-03-25] MEDS: DIVALPROEX SODIUM 500 MG DR TABLET PO SCH ×2 (08:34→21:06)
[2018-03-25] MEDS: COLLOIDAL OATMEAL/DIMETH 227 GM LOTION TP SCH ×3 (08:34→17:21)
[2018-03-25] MEDS: LORazepam 1 MG TABLET PO PRN ×2 (12:04→17:22)
[2018-03-25] MEDS: QUEtiapine FUMARATE 100 MG TABLET PO PRN ×2 (12:05→17:22)
[2018-03-25 16:57] VITALS: BP 105/63
[2018-03-25] MEDS: ZOLPIDEM TARTRATE 10 MG TABLET PO PRN (21:06)
[2018-03-26 06:29] VITALS: BP 115/66
[2018-03-26] MEDS: DIVALPROEX SODIUM 500 MG DR TABLET PO SCH ×2 (08:04→20:47)
[2018-03-26 08:17] VITALS: BP 100/62
[2018-03-26] MEDS: COLLOIDAL OATMEAL/DIMETH 227 GM LOTION TP SCH ×3 (08:26→17:07)
[2018-03-26] MEDS: LORazepam 1 MG TABLET PO PRN ×2 (12:25→17:07)
[2018-03-26] MEDS: QUEtiapine FUMARATE 100 MG TABLET PO PRN (13:41)
[2018-03-26 16:43] VITALS: BP 114/84
[2018-03-26] MEDS: ZOLPIDEM TARTRATE 10 MG TABLET PO PRN (20:47)
[2018-03-27 06:49] VITALS: BP 112/71
[2018-03-27] MEDS: COLLOIDAL OATMEAL/DIMETH 227 GM LOTION TP SCH ×3 (08:23→16:06)
[2018-03-27] MEDS: DIVALPROEX SODIUM 500 MG DR TABLET PO SCH ×2 (08:23→20:10)
[2018-03-27 08:33] VITALS: BP 100/63
[2018-03-27] MEDS: LORazepam 1 MG TABLET PO PRN ×2 (11:54→16:05)
[2018-03-27 16:34] VITALS: BP 123/87
[2018-03-27] MEDS: ZOLPIDEM TARTRATE 10 MG TABLET PO PRN (21:15)
[2018-03-28 02:28] VITALS: BP 119/75
[2018-03-28] MEDS: IBUPROFEN 400 MG TABLET PO PRN ×2 (02:28→17:24)
[2018-03-28] MEDS: DIVALPROEX SODIUM 500 MG DR TABLET PO SCH ×2 (08:28→20:51)
[2018-03-28] MEDS: COLLOIDAL OATMEAL/DIMETH 227 GM LOTION TP SCH ×3 (08:28→17:23)
[2018-03-28] MEDS: LORazepam 1 MG TABLET PO PRN ×2 (09:13→17:23)
[2018-03-28 16:21] VITALS: BP 118/68
[2018-03-28] MEDS: QUEtiapine FUMARATE 100 MG TABLET PO PRN (17:23)
[2018-03-28] MEDS: ZOLPIDEM TARTRATE 10 MG TABLET PO PRN (20:51)
[2018-03-29 07:12] VITALS: BP 110/68
[2018-03-29 08:21] VITALS: BP 109/56
[2018-03-29] MEDS: DIVALPROEX SODIUM 500 MG DR TABLET PO SCH ×2 (09:41→20:32)
[2018-03-29] MEDS: COLLOIDAL OATMEAL/DIMETH 227 GM LOTION TP SCH ×3 (10:03→17:09)
[2018-03-29] MEDS: QUEtiapine FUMARATE 100 MG TABLET PO PRN (10:16)
[2018-03-29] MEDS: LORazepam 1 MG TABLET PO PRN (10:17)
[2018-03-30 08:21] VITALS: BP 110/56
[2018-03-30] MEDS: LORazepam 1 MG TABLET PO PRN ×2 (08:23→16:25)
[2018-03-30] MEDS: DIVALPROEX SODIUM 500 MG DR TABLET PO SCH ×2 (08:23→20:42)
[2018-03-30] MEDS: COLLOIDAL OATMEAL/DIMETH 227 GM LOTION TP SCH ×3 (08:24→17:32)
[2018-03-30] MEDS: BENZTROPINE MESYLATE 0.5 MG TABLET PO SCH ×2 (09:05→20:41)
[2018-03-30] MEDS: NICOTINE 14 MG/24 HOUR PATCH TD SCH (09:30)
[2018-03-30 16:13] VITALS: BP 114/74
[2018-03-31] VITALS: BP 100/76
[2018-03-31 08:20] VITALS: BP 100/55
[2018-03-31] MEDS: DIVALPROEX SODIUM 500 MG DR TABLET PO SCH ×2 (08:48→21:07)
[2018-03-31] MEDS: NICOTINE 14 MG/24 HOUR PATCH TD SCH (08:49)
[2018-03-31] MEDS: COLLOIDAL OATMEAL/DIMETH 227 GM LOTION TP SCH ×3 (08:50→17:02)
[2018-03-31] MEDS: BENZTROPINE MESYLATE 0.5 MG TABLET PO SCH ×2 (08:59→21:06)
[2018-03-31] MEDS: PALIPERIDONE PALMITATE 234 MG/1.5 ML SYRINGE IM SCH (09:00)
[2018-03-31] MEDS: LORazepam 1 MG TABLET PO PRN ×2 (09:47→14:36)
[2018-03-31] MEDS: QUEtiapine FUMARATE 100 MG TABLET PO PRN (12:51)
[2018-03-31 16:12] VITALS: BP 115/82
[2018-03-31] MEDS: ZOLPIDEM TARTRATE 10 MG TABLET PO PRN (21:07)
[2018-04-01 01:46] VITALS: BP 113/73
[2018-04-01 08:16] VITALS: BP 114/76
[2018-04-01] MEDS: NICOTINE 14 MG/24 HOUR PATCH TD SCH (08:24)
[2018-04-01] MEDS: DIVALPROEX SODIUM 500 MG DR TABLET PO SCH ×2 (08:25→21:43)
[2018-04-01] MEDS: BENZTROPINE MESYLATE 0.5 MG TABLET PO SCH ×2 (08:25→21:44)
[2018-04-01] MEDS: LORazepam 1 MG TABLET PO PRN ×2 (08:25→13:32)
[2018-04-01] MEDS: COLLOIDAL OATMEAL/DIMETH 227 GM LOTION TP SCH ×3 (08:25→16:49)
[2018-04-01] MEDS: QUEtiapine FUMARATE 100 MG TABLET PO PRN ×2 (11:50→16:49)
[2018-04-01 18:45] VITALS: BP 118/79
[2018-04-01] MEDS: ZOLPIDEM TARTRATE 10 MG TABLET PO PRN (21:44)
[2018-04-02] VITALS: BP 101/62
[2018-04-02] MEDS: BENZTROPINE MESYLATE 0.5 MG TABLET PO SCH ×2 (08:10→21:18)
[2018-04-02] MEDS: DIVALPROEX SODIUM 500 MG DR TABLET PO SCH ×2 (08:10→21:18)
[2018-04-02] MEDS: LORazepam 1 MG TABLET PO PRN (08:11)
[2018-04-02] MEDS: QUEtiapine FUMARATE 100 MG TABLET PO PRN (08:11)
[2018-04-02] MEDS: NICOTINE 14 MG/24 HOUR PATCH TD SCH (08:11)
[2018-04-02] MEDS: COLLOIDAL OATMEAL/DIMETH 227 GM LOTION TP SCH ×3 (08:12→17:57)
[2018-04-02 08:24] VITALS: BP 114/72
[2018-04-02] MEDS: IBUPROFEN 400 MG TABLET PO PRN (15:08)
[2018-04-02 16:29] VITALS: BP 113/68
[2018-04-02] MEDS: ZOLPIDEM TARTRATE 10 MG TABLET PO PRN (21:22)
[2018-04-03 03:10] VITALS: BP 104/65
[2018-04-03] MEDS: DIVALPROEX SODIUM 500 MG DR TABLET PO SCH ×2 (08:26→20:21)
[2018-04-03] MEDS: BENZTROPINE MESYLATE 0.5 MG TABLET PO SCH ×2 (08:26→20:22)
[2018-04-03] MEDS: COLLOIDAL OATMEAL/DIMETH 227 GM LOTION TP SCH ×3 (08:26→16:18)
[2018-04-03] MEDS: NICOTINE 14 MG/24 HOUR PATCH TD SCH (08:26)
[2018-04-03 08:28] VITALS: BP 114/66
[2018-04-03] MEDS: LORazepam 1 MG TABLET PO PRN ×2 (08:36→16:18)
[2018-04-03 17:24] VITALS: BP 111/66
[2018-04-03] MEDS: ZOLPIDEM TARTRATE 10 MG TABLET PO PRN (20:21)
[2018-04-04 07:08] VITALS: BP 115/75
[2018-04-04] MEDS: BENZTROPINE MESYLATE 0.5 MG TABLET PO SCH (08:10)
[2018-04-04] MEDS: NICOTINE 14 MG/24 HOUR PATCH TD SCH (08:11)
[2018-04-04] MEDS: DIVALPROEX SODIUM 500 MG DR TABLET PO SCH ×2 (08:11→20:27)
[2018-04-04] MEDS: COLLOIDAL OATMEAL/DIMETH 227 GM LOTION TP SCH ×3 (08:12→16:09)
[2018-04-04 08:13] VITALS: BP 114/72
[2018-04-04] MEDS: LORazepam 1 MG TABLET PO PRN (09:35)
[2018-04-04] MEDS: QUEtiapine FUMARATE 100 MG TABLET PO PRN ×2 (10:01→16:08)
[2018-04-04] MEDS ORDERED: BENZTROPINE MESYLATE 0.5 MG TABLET PO ONE (11:15)
[2018-04-04] MEDS: BENZTROPINE MESYLATE 1 MG TABLET PO SCH (20:27)
[2018-04-04] MEDS: ZOLPIDEM TARTRATE 10 MG TABLET PO PRN (21:22)
[2018-04-05 04:48] VITALS: BP 117/67
[2018-04-05] MEDS: NICOTINE 14 MG/24 HOUR PATCH TD SCH (08:12)
[2018-04-05] MEDS: BENZTROPINE MESYLATE 1 MG TABLET PO SCH ×2 (08:12→20:30)
[2018-04-05] MEDS: DIVALPROEX SODIUM 500 MG DR TABLET PO SCH ×2 (08:12→20:30)
[2018-04-05 08:18] VITALS: BP 100/60
[2018-04-05] MEDS: COLLOIDAL OATMEAL/DIMETH 227 GM LOTION TP SCH ×3 (09:01→17:25)
[2018-04-05] MEDS: LORazepam 1 MG TABLET PO PRN ×2 (09:56→17:31)
[2018-04-05] MEDS: QUEtiapine FUMARATE 100 MG TABLET PO PRN (12:10)
[2018-04-05 16:17] VITALS: BP 127/93
[2018-04-05] MEDS: ZOLPIDEM TARTRATE 10 MG TABLET PO PRN (20:30)
[2018-04-06 03:30] VITALS: BP 101/73
[2018-04-06] MEDS: LORazepam 1 MG TABLET PO PRN ×2 (08:50→16:36)
[2018-04-06] MEDS: BENZTROPINE MESYLATE 1 MG TABLET PO SCH ×2 (08:51→20:23)
[2018-04-06] MEDS: NICOTINE 14 MG/24 HOUR PATCH TD SCH (08:51)
[2018-04-06] MEDS: COLLOIDAL OATMEAL/DIMETH 227 GM LOTION TP SCH ×3 (08:51→16:36)
[2018-04-06] MEDS: DIVALPROEX SODIUM 500 MG DR TABLET PO SCH ×2 (08:51→20:23)
[2018-04-06] MEDS: QUEtiapine FUMARATE 100 MG TABLET PO PRN (13:05)
[2018-04-06 16:18] VITALS: BP 111/74
[2018-04-07 00:50] VITALS: BP 104/76
[2018-04-07] MEDS: NICOTINE 14 MG/24 HOUR PATCH TD SCH (08:14)
[2018-04-07] MEDS: DIVALPROEX SODIUM 500 MG DR TABLET PO SCH ×2 (08:14→21:26)
[2018-04-07] MEDS: BENZTROPINE MESYLATE 1 MG TABLET PO SCH ×2 (08:14→21:39)
[2018-04-07] MEDS: COLLOIDAL OATMEAL/DIMETH 227 GM LOTION TP SCH ×3 (08:14→17:56)
[2018-04-07 08:26] VITALS: BP 115/54
[2018-04-07] MEDS: LORazepam 1 MG TABLET PO PRN ×2 (10:31→17:56)
[2018-04-07] MEDS: QUEtiapine FUMARATE 100 MG TABLET PO PRN (10:48)
[2018-04-07 16:11] VITALS: BP 109/74
[2018-04-07] MEDS: ZOLPIDEM TARTRATE 10 MG TABLET PO PRN (21:25)
[2018-04-08 02:50] VITALS: BP 106/65
[2018-04-08 08:26] VITALS: BP 100/52
[2018-04-08] MEDS: BENZTROPINE MESYLATE 1 MG TABLET PO SCH ×2 (09:02→20:09)
[2018-04-08] MEDS: LORazepam 1 MG TABLET PO PRN ×2 (09:02→16:08)
[2018-04-08] MEDS: DIVALPROEX SODIUM 500 MG DR TABLET PO SCH ×2 (09:02→20:09)
[2018-04-08] MEDS: NICOTINE 14 MG/24 HOUR PATCH TD SCH (09:02)
[2018-04-08] MEDS: COLLOIDAL OATMEAL/DIMETH 227 GM LOTION TP SCH ×3 (09:04→16:26)
[2018-04-08] MEDS: QUEtiapine FUMARATE 100 MG TABLET PO PRN (12:09)
[2018-04-08 17:30] VITALS: BP 118/84
[2018-04-08] MEDS: ZOLPIDEM TARTRATE 10 MG TABLET PO PRN (20:09)
[2018-04-09 00:25] VITALS: BP 100/62
[2018-04-09 08:32] VITALS: BP 103/60
[2018-04-09] MEDS: NICOTINE 14 MG/24 HOUR PATCH TD SCH (08:45)
[2018-04-09] MEDS: DIVALPROEX SODIUM 500 MG DR TABLET PO SCH ×2 (08:46→20:05)
[2018-04-09] MEDS: BENZTROPINE MESYLATE 1 MG TABLET PO SCH ×2 (08:46→20:05)
[2018-04-09] MEDS: COLLOIDAL OATMEAL/DIMETH 227 GM LOTION TP SCH ×3 (08:46→16:15)
[2018-04-09] MEDS: QUEtiapine FUMARATE 100 MG TABLET PO PRN ×2 (09:03→16:15)
[2018-04-09] MEDS: LORazepam 1 MG TABLET PO PRN ×2 (09:03→16:15)
[2018-04-09 16:39] VITALS: BP 123/99
[2018-04-09] MEDS: ZOLPIDEM TARTRATE 10 MG TABLET PO PRN (20:05)
[2018-04-10 00:47] VITALS: BP 105/64
[2018-04-10] MEDS: COLLOIDAL OATMEAL/DIMETH 227 GM LOTION TP SCH ×3 (08:09→16:52)
[2018-04-10] MEDS: NICOTINE 14 MG/24 HOUR PATCH TD SCH (08:10)
[2018-04-10] MEDS: BENZTROPINE MESYLATE 1 MG TABLET PO SCH ×2 (08:10→20:49)
[2018-04-10] MEDS: DIVALPROEX SODIUM 500 MG DR TABLET PO SCH ×2 (08:11→20:49)
[2018-04-10 08:18] VITALS: BP 99/58
[2018-04-10] MEDS: LORazepam 1 MG TABLET PO PRN ×2 (10:45→17:21)
[2018-04-10] MEDS: QUEtiapine FUMARATE 100 MG TABLET PO PRN ×2 (12:39→17:21)
[2018-04-10] MEDS: IBUPROFEN 400 MG TABLET PO PRN (13:59)
[2018-04-10 16:09] VITALS: BP 147/59
[2018-04-10] MEDS: ZOLPIDEM TARTRATE 10 MG TABLET PO PRN (21:13)
[2018-04-11] VITALS: BP 112/72
[2018-04-11] MEDS: NICOTINE 14 MG/24 HOUR PATCH TD SCH (08:48)
[2018-04-11] MEDS: COLLOIDAL OATMEAL/DIMETH 227 GM LOTION TP SCH ×3 (08:48→16:34)
[2018-04-11] MEDS: BENZTROPINE MESYLATE 1 MG TABLET PO SCH ×2 (08:49→20:26)
[2018-04-11] MEDS: DIVALPROEX SODIUM 500 MG DR TABLET PO SCH ×2 (08:50→20:26)
[2018-04-11] MEDS: LORazepam 1 MG TABLET PO PRN ×2 (09:56→16:59)
[2018-04-11 10:00] VITALS: BP 97/60
[2018-04-11] MEDS: QUEtiapine FUMARATE 100 MG TABLET PO PRN ×2 (10:36→17:00)
[2018-04-11 17:07] VITALS: BP 111/68
[2018-04-12 07:18] VITALS: BP 106/64
[2018-04-12 09:29] VITALS: BP 104/64
[2018-04-12] MEDS: NICOTINE 14 MG/24 HOUR PATCH TD SCH (09:32)
[2018-04-12] MEDS: DIVALPROEX SODIUM 500 MG DR TABLET PO SCH ×2 (09:32→20:22)
[2018-04-12] MEDS: BENZTROPINE MESYLATE 1 MG TABLET PO SCH ×2 (09:32→20:22)
[2018-04-12] MEDS: COLLOIDAL OATMEAL/DIMETH 227 GM LOTION TP SCH ×3 (09:33→16:57)
[2018-04-12] MEDS: LORazepam 1 MG TABLET PO PRN ×2 (09:58→16:57)
[2018-04-12] MEDS: QUEtiapine FUMARATE 100 MG TABLET PO PRN (09:58)
[2018-04-12] MEDS: MAG HYDROX/AL HYDROX/SIMETH ES 30 ML SUSPENSION UDCUP PO PRN (10:21)
[2018-04-12 16:35] VITALS: BP 122/86
[2018-04-13 00:30] VITALS: BP 122/66
[2018-04-13] MEDS: ZOLPIDEM TARTRATE 10 MG TABLET PO PRN (00:40)
[2018-04-13 08:38] VITALS: BP 111/64
[2018-04-13] MEDS: BENZTROPINE MESYLATE 1 MG TABLET PO SCH ×2 (08:40→21:06)
[2018-04-13] MEDS: DIVALPROEX SODIUM 500 MG DR TABLET PO SCH ×2 (08:40→21:05)
[2018-04-13] MEDS: COLLOIDAL OATMEAL/DIMETH 227 GM LOTION TP SCH ×3 (08:45→17:09)
[2018-04-13] MEDS: NICOTINE 14 MG/24 HOUR PATCH TD SCH (08:45)
[2018-04-13] MEDS: LORazepam 1 MG TABLET PO PRN ×2 (10:10→17:33)
[2018-04-13] MEDS: ACETAMINOPHEN 325 MG TABLET PO PRN (13:08)
[2018-04-13 17:34] VITALS: BP 123/81
[2018-04-13] MEDS: ONDANSETRON HCL 4 MG TABLET PO PRN (18:09)
[2018-04-14] VITALS: BP 105/72
[2018-04-14] MEDS: NICOTINE 14 MG/24 HOUR PATCH TD SCH (09:33)
[2018-04-14] MEDS: COLLOIDAL OATMEAL/DIMETH 227 GM LOTION TP SCH ×3 (09:33→17:19)
[2018-04-14] MEDS: BENZTROPINE MESYLATE 1 MG TABLET PO SCH ×2 (09:33→20:16)
[2018-04-14] MEDS: DIVALPROEX SODIUM 500 MG DR TABLET PO SCH ×2 (09:33→20:16)
[2018-04-14] MEDS: QUEtiapine FUMARATE 100 MG TABLET PO PRN (12:39)
[2018-04-14] MEDS: LORazepam 1 MG TABLET PO PRN (12:40)
[2018-04-14 13:06] VITALS: BP 126/94
[2018-04-14 16:59] VITALS: BP 126/90
[2018-04-15 00:24] VITALS: BP 103/67
[2018-04-15] MEDS: LORazepam 1 MG TABLET PO PRN (07:18)
[2018-04-15] MEDS: QUEtiapine FUMARATE 100 MG TABLET PO PRN (07:18)
[2018-04-15] MEDS: DIVALPROEX SODIUM 500 MG DR TABLET PO SCH ×2 (08:02→20:18)
[2018-04-15] MEDS: BENZTROPINE MESYLATE 1 MG TABLET PO SCH ×2 (08:02→20:18)
[2018-04-15] MEDS: COLLOIDAL OATMEAL/DIMETH 227 GM LOTION TP SCH ×3 (08:03→16:17)
[2018-04-15] MEDS: NICOTINE 14 MG/24 HOUR PATCH TD SCH (08:03)
[2018-04-15 10:48] VITALS: BP 124/81
[2018-04-15 12:19] VITALS: BP 124/81
[2018-04-15] MEDS: ACETAMINOPHEN 325 MG TABLET PO PRN (12:19)
[2018-04-15 16:06] VITALS: BP 137/90
[2018-04-16 00:15] VITALS: BP 102/75
[2018-04-16 08:30] VITALS: BP 97/69
[2018-04-16] MEDS: COLLOIDAL OATMEAL/DIMETH 227 GM LOTION TP SCH ×3 (09:19→16:22)
[2018-04-16] MEDS: DIVALPROEX SODIUM 500 MG DR TABLET PO SCH ×2 (09:19→20:39)
[2018-04-16] MEDS: BENZTROPINE MESYLATE 1 MG TABLET PO SCH ×2 (09:19→20:39)
[2018-04-16] MEDS: NICOTINE 14 MG/24 HOUR PATCH TD SCH (09:19)
[2018-04-16] MEDS: QUEtiapine FUMARATE 100 MG TABLET PO PRN ×2 (10:03→16:22)
[2018-04-16] MEDS: LORazepam 1 MG TABLET PO PRN ×2 (10:03→16:21)
[2018-04-16 17:10] VITALS: BP 107/77
[2018-04-16] MEDS: ZOLPIDEM TARTRATE 10 MG TABLET PO PRN (20:39)
[2018-04-17] MEDS: DIVALPROEX SODIUM 500 MG DR TABLET PO SCH ×2 (08:04→20:27)
[2018-04-17] MEDS: BENZTROPINE MESYLATE 1 MG TABLET PO SCH ×2 (08:04→20:27)
[2018-04-17] MEDS: COLLOIDAL OATMEAL/DIMETH 227 GM LOTION TP SCH ×3 (08:04→16:49)
[2018-04-17 08:21] VITALS: BP 106/62
[2018-04-17] MEDS: NICOTINE 14 MG/24 HOUR PATCH TD SCH (08:23)
[2018-04-17] MEDS: IBUPROFEN 400 MG TABLET PO PRN ×2 (10:19→16:48)
[2018-04-17] MEDS: LORazepam 1 MG TABLET PO PRN ×2 (10:19→16:48)
[2018-04-17 16:36] VITALS: BP 136/95
[2018-04-17] MEDS: QUEtiapine FUMARATE 100 MG TABLET PO PRN (16:48)
[2018-04-17] MEDS: ZOLPIDEM TARTRATE 10 MG TABLET PO PRN (20:28)
[2018-04-18 01:00] VITALS: BP 106/72
[2018-04-18] MEDS: IBUPROFEN 400 MG TABLET PO PRN ×2 (01:07→09:48)
[2018-04-18 08:19] VITALS: BP 100/60
[2018-04-18] MEDS: NICOTINE 14 MG/24 HOUR PATCH TD SCH (08:19)
[2018-04-18] MEDS: COLLOIDAL OATMEAL/DIMETH 227 GM LOTION TP SCH ×3 (08:19→16:53)
[2018-04-18] MEDS: BENZTROPINE MESYLATE 1 MG TABLET PO SCH ×2 (08:20→20:37)
[2018-04-18] MEDS: DIVALPROEX SODIUM 500 MG DR TABLET PO SCH ×2 (08:20→20:37)
[2018-04-18] MEDS: LORazepam 1 MG TABLET PO PRN ×2 (09:48→16:55)
[2018-04-18] MEDS: QUEtiapine FUMARATE 100 MG TABLET PO PRN (13:06)
[2018-04-18] MEDS: MAG HYDROX/AL HYDROX/SIMETH ES 30 ML SUSPENSION UDCUP PO PRN (14:28)
[2018-04-18 16:09] VITALS: BP 135/91
[2018-04-19 04:54] VITALS: BP 129/89
[2018-04-19] MEDS: IBUPROFEN 400 MG TABLET PO PRN ×2 (04:55→13:51)
[2018-04-19 04:56] VITALS: BP 129/69
[2018-04-19] MEDS: COLLOIDAL OATMEAL/DIMETH 227 GM LOTION TP SCH ×3 (08:01→16:54)
[2018-04-19] MEDS: NICOTINE 14 MG/24 HOUR PATCH TD SCH (08:02)
[2018-04-19] MEDS: DIVALPROEX SODIUM 500 MG DR TABLET PO SCH ×2 (08:02→20:34)
[2018-04-19] MEDS: BENZTROPINE MESYLATE 1 MG TABLET PO SCH ×2 (08:02→20:35)
[2018-04-19 08:27] VITALS: BP 100/58
[2018-04-19] MEDS: QUEtiapine FUMARATE 100 MG TABLET PO PRN (10:23)
[2018-04-19] MEDS: LORazepam 1 MG TABLET PO PRN (10:23)
[2018-04-19 13:52] VITALS: BP 108/70
[2018-04-19] MEDS: ACETAMINOPHEN 325 MG TABLET PO PRN (15:54)
[2018-04-19] MEDS: ZOLPIDEM TARTRATE 10 MG TABLET PO PRN (20:35)
[2018-04-20] VITALS: BP 105/80
[2018-04-20] MEDS: IBUPROFEN 400 MG TABLET PO PRN (03:25)
[2018-04-20 07:21] LABS: BASOPHILS % (AUTO) 0.7 % (0.0-2.0); HEMATOCRIT 39.9 % (36-46); HEMOGLOBIN 13.7 g/dL (12.0-16.0); LYMPHOCYTES # (AUTO) 2.5 K/uL (1.0-4.8); LYMPHOCYTES % (AUTO) 39.2 % (22.0-44.0); MEAN CORPUSCULAR HEMOGLOBIN 31.4 pg (26.0-34.0); MEAN CORPUSCULAR HGB CONC 34.4 G/dL (31.0-37.0); MEAN CORPUSCULAR VOLUME 91 fL (80-100); MONOCYTES # (AUTO) 0.7 K/uL (0.1-1.0); MONOCYTES % (AUTO) 10.4 % (2.0-9.0); NEUTROPHILS % (AUTO) 46.7 % (40.0-70.0); PLATELET COUNT (AUTO) 262 K/uL (150-450); RED BLOOD CELL COUNT(AUTO) 4.37 MIL/uL (4.00-5.20)
[2018-04-20 07:32] LABS: ANION GAP 5 mmol/L (8-16); CALCIUM, TOTAL 8.7 mg/dL (8.8-10.5); CARBON DIOXIDE 32 mmol/L (22-29); CHLORIDE 100 mmol/L (98-107); CREATININE 0.65 mg/dL (0.60-1.30); GLOMERULAR FILTR. RATE CALC > 60 mL/min (>60); GLUCOSE,RANDOM 91 mg/dL (70-110); POTASSIUM 4.8 mmol/L (3.5-5.1); SODIUM SERUM 137 mmol/L (136-145); UREA NITROGEN, BLOOD 17 mg/dL (7-18)
[2018-04-20] MEDS: COLLOIDAL OATMEAL/DIMETH 227 GM LOTION TP SCH ×3 (08:11→16:17)
[2018-04-20 08:12] VITALS: BP 103/63
[2018-04-20] MEDS: NICOTINE 14 MG/24 HOUR PATCH TD SCH (08:12)
[2018-04-20] MEDS: BENZTROPINE MESYLATE 1 MG TABLET PO SCH ×2 (08:12→20:33)
[2018-04-20] MEDS: DIVALPROEX SODIUM 500 MG DR TABLET PO SCH ×2 (08:12→20:33)
[2018-04-20] MEDS: QUEtiapine FUMARATE 100 MG TABLET PO PRN (11:16)
[2018-04-20] MEDS: LORazepam 1 MG TABLET PO PRN (11:16)
[2018-04-20 12:35] VITALS: BP 122/72
[2018-04-20] MEDS: ACETAMINOPHEN 325 MG TABLET PO PRN (12:35)
[2018-04-20 13:35] VITALS: BP 112/70
[2018-04-20 16:10] VITALS: BP 125/76
[2018-04-20 17:04] VITALS: BP 122/86
[2018-04-20] MEDS: BENZOCAINE 10% 7 GM GEL TP PRN (17:04)
[2018-04-21 00:09] VITALS: BP 100/65
[2018-04-21 08:37] VITALS: BP 104/73
[2018-04-21] MEDS: COLLOIDAL OATMEAL/DIMETH 227 GM LOTION TP SCH ×3 (09:00→17:00)
[2018-04-21] MEDS: BENZTROPINE MESYLATE 1 MG TABLET PO SCH ×2 (09:20→20:22)
[2018-04-21] MEDS: DIVALPROEX SODIUM 500 MG DR TABLET PO SCH ×2 (09:21→20:20)
[2018-04-21] MEDS: NICOTINE 14 MG/24 HOUR PATCH TD SCH (09:29)
[2018-04-21] MEDS: QUEtiapine FUMARATE 100 MG TABLET PO PRN (09:35)
[2018-04-21] MEDS: LORazepam 1 MG TABLET PO PRN (09:35)
[2018-04-21 16:15] VITALS: BP 129/88
[2018-04-21] MEDS: ZOLPIDEM TARTRATE 10 MG TABLET PO PRN (20:19)
[2018-04-22 00:15] VITALS: BP 105/62
[2018-04-22] MEDS: IBUPROFEN 400 MG TABLET PO PRN (07:02)
[2018-04-22] MEDS: BENZOCAINE 10% 7 GM GEL TP PRN ×3 (07:02→20:40)
[2018-04-22 08:10] VITALS: BP 111/74
[2018-04-22] MEDS: BENZTROPINE MESYLATE 1 MG TABLET PO SCH ×2 (08:21→21:07)
[2018-04-22] MEDS: COLLOIDAL OATMEAL/DIMETH 227 GM LOTION TP SCH ×3 (08:21→17:25)
[2018-04-22] MEDS: DIVALPROEX SODIUM 500 MG DR TABLET PO SCH ×2 (08:21→21:06)
[2018-04-22] MEDS: NICOTINE 14 MG/24 HOUR PATCH TD SCH (08:22)
[2018-04-22] MEDS: LORazepam 1 MG TABLET PO PRN (12:17)
[2018-04-22] MEDS: QUEtiapine FUMARATE 100 MG TABLET PO PRN (12:17)
[2018-04-22 16:00] VITALS: BP 125/74
[2018-04-22] MEDS: ACETAMINOPHEN 325 MG TABLET PO PRN (19:48)
[2018-04-23 02:55] VITALS: BP 121/81
[2018-04-23] MEDS: BENZOCAINE 10% 7 GM GEL TP PRN (02:56)
[2018-04-23] MEDS: IBUPROFEN 400 MG TABLET PO PRN ×2 (02:56→17:04)
[2018-04-23 08:26] VITALS: BP 106/63
[2018-04-23] MEDS: BENZTROPINE MESYLATE 1 MG TABLET PO SCH ×2 (09:25→20:09)
[2018-04-23] MEDS: COLLOIDAL OATMEAL/DIMETH 227 GM LOTION TP SCH ×3 (09:25→16:11)
[2018-04-23] MEDS: DIVALPROEX SODIUM 500 MG DR TABLET PO SCH ×2 (09:25→20:09)
[2018-04-23] MEDS: NICOTINE 14 MG/24 HOUR PATCH TD SCH (09:27)
[2018-04-23] MEDS: QUEtiapine FUMARATE 100 MG TABLET PO PRN ×2 (12:12→16:26)
[2018-04-23] MEDS: LORazepam 1 MG TABLET PO PRN ×2 (12:12→16:26)
[2018-04-23 16:22] VITALS: BP 125/89
[2018-04-23] MEDS: ZOLPIDEM TARTRATE 10 MG TABLET PO PRN (20:37)
[2018-04-24 01:30] VITALS: BP 110/67
[2018-04-24] MEDS: IBUPROFEN 400 MG TABLET PO PRN ×2 (01:34→12:07)
[2018-04-24] MEDS: BENZOCAINE 10% 7 GM GEL TP PRN ×2 (01:35→12:09)
[2018-04-24] MEDS: COLLOIDAL OATMEAL/DIMETH 227 GM LOTION TP SCH ×3 (08:02→16:21)
[2018-04-24] MEDS: NICOTINE 14 MG/24 HOUR PATCH TD SCH (08:02)
[2018-04-24] MEDS: DIVALPROEX SODIUM 500 MG DR TABLET PO SCH ×2 (08:02→20:13)
[2018-04-24] MEDS: BENZTROPINE MESYLATE 1 MG TABLET PO SCH ×2 (08:02→20:13)
[2018-04-24 08:14] VITALS: BP 108/73
[2018-04-24] MEDS: LORazepam 1 MG TABLET PO PRN ×2 (11:36→17:01)
[2018-04-24] MEDS: QUEtiapine FUMARATE 100 MG TABLET PO PRN ×2 (12:13→17:01)
[2018-04-24 16:16] VITALS: BP 109/68
[2018-04-24] MEDS: ZOLPIDEM TARTRATE 10 MG TABLET PO PRN (20:37)
[2018-04-25 04:00] VITALS: BP 111/64
[2018-04-25] MEDS: IBUPROFEN 400 MG TABLET PO PRN ×2 (04:11→13:01)
[2018-04-25] MEDS: BENZOCAINE 10% 7 GM GEL TP PRN ×2 (04:11→12:57)
[2018-04-25] MEDS: NICOTINE 14 MG/24 HOUR PATCH TD SCH (08:54)
[2018-04-25] MEDS: BENZTROPINE MESYLATE 1 MG TABLET PO SCH ×2 (08:54→20:14)
[2018-04-25] MEDS: COLLOIDAL OATMEAL/DIMETH 227 GM LOTION TP SCH ×3 (08:54→16:09)
[2018-04-25] MEDS: DIVALPROEX SODIUM 500 MG DR TABLET PO SCH ×2 (08:54→20:14)
[2018-04-25 10:00] VITALS: BP 110/71
[2018-04-25] MEDS: LORazepam 1 MG TABLET PO PRN ×2 (10:43→16:01)
[2018-04-25 12:57] VITALS: BP 116/70
[2018-04-25] MEDS: QUEtiapine FUMARATE 100 MG TABLET PO PRN (16:01)
[2018-04-25 16:08] VITALS: BP 134/94
[2018-04-25] MEDS: ACETAMINOPHEN 325 MG TABLET PO PRN (16:08)
[2018-04-25] MEDS: MAG HYDROX/AL HYDROX/SIMETH ES 30 ML SUSPENSION UDCUP PO PRN (17:01)
[2018-04-26 04:11] VITALS: BP 100/72
[2018-04-26 08:21] VITALS: BP 100/53
[2018-04-26] MEDS: NICOTINE 14 MG/24 HOUR PATCH TD SCH (08:47)
[2018-04-26] MEDS: DIVALPROEX SODIUM 500 MG DR TABLET PO SCH ×2 (08:48→20:11)
[2018-04-26] MEDS: COLLOIDAL OATMEAL/DIMETH 227 GM LOTION TP SCH ×3 (08:48→16:10)
[2018-04-26] MEDS: BENZTROPINE MESYLATE 1 MG TABLET PO SCH ×2 (08:48→20:11)
[2018-04-26] MEDS: LORazepam 1 MG TABLET PO PRN (13:14)
[2018-04-26 14:28] VITALS: BP 104/79
[2018-04-26] MEDS: IBUPROFEN 400 MG TABLET PO PRN (14:29)
[2018-04-26 16:14] VITALS: BP 103/73
[2018-04-26] MEDS: BENZOCAINE 10% 7 GM GEL TP PRN (16:14)
[2018-04-26] MEDS: QUEtiapine FUMARATE 100 MG TABLET PO PRN (16:14)
[2018-04-26] MEDS: ZOLPIDEM TARTRATE 10 MG TABLET PO PRN (21:11)
[2018-04-27 01:48] VITALS: BP 106/74
[2018-04-27 08:12] VITALS: BP 100/60
[2018-04-27] MEDS: NICOTINE 14 MG/24 HOUR PATCH TD SCH (09:02)
[2018-04-27] MEDS: COLLOIDAL OATMEAL/DIMETH 227 GM LOTION TP SCH ×3 (09:02→20:25)
[2018-04-27] MEDS: BENZTROPINE MESYLATE 1 MG TABLET PO SCH ×2 (09:02→20:14)
[2018-04-27] MEDS: DIVALPROEX SODIUM 500 MG DR TABLET PO SCH ×2 (09:02→20:13)
[2018-04-27 11:16] VITALS: BP 126/81
[2018-04-27] MEDS: IBUPROFEN 400 MG TABLET PO PRN (11:16)
[2018-04-27] MEDS: LORazepam 1 MG TABLET PO PRN (13:30)
[2018-04-27] MEDS: QUEtiapine FUMARATE 100 MG TABLET PO PRN (13:30)
[2018-04-27 16:09] VITALS: BP 132/94
[2018-04-28 00:27] VITALS: BP 101/62
[2018-04-28] MEDS: COLLOIDAL OATMEAL/DIMETH 227 GM LOTION TP SCH ×3 (08:08→17:06)
[2018-04-28] MEDS: NICOTINE 14 MG/24 HOUR PATCH TD SCH (08:08)
[2018-04-28] MEDS: BENZTROPINE MESYLATE 1 MG TABLET PO SCH ×2 (08:09→20:29)
[2018-04-28] MEDS: DIVALPROEX SODIUM 500 MG DR TABLET PO SCH ×2 (08:09→20:29)
[2018-04-28 08:27] VITALS: BP 100/59
[2018-04-28] MEDS: PALIPERIDONE PALMITATE 234 MG/1.5 ML SYRINGE IM SCH (09:47)
[2018-04-28 16:14] VITALS: BP 129/89
[2018-04-28] MEDS: QUEtiapine FUMARATE 100 MG TABLET PO PRN (17:06)
[2018-04-28] MEDS: LORazepam 1 MG TABLET PO PRN (17:06)
[2018-04-28] MEDS: ZOLPIDEM TARTRATE 10 MG TABLET PO PRN (20:29)
[2018-04-29 00:41] VITALS: BP 100/67
[2018-04-29] MEDS: NICOTINE 14 MG/24 HOUR PATCH TD SCH (08:04)
[2018-04-29] MEDS: COLLOIDAL OATMEAL/DIMETH 227 GM LOTION TP SCH ×3 (08:04→19:47)
[2018-04-29] MEDS: DIVALPROEX SODIUM 500 MG DR TABLET PO SCH ×2 (08:04→20:12)
[2018-04-29] MEDS: BENZTROPINE MESYLATE 1 MG TABLET PO SCH ×2 (08:04→20:12)
[2018-04-29 08:13] VITALS: BP 100/55
[2018-04-29] MEDS: LORazepam 1 MG TABLET PO PRN (13:23)
[2018-04-29 14:02] VITALS: BP 110/62
[2018-04-29] MEDS ORDERED: TUBERCULIN, PURIFIED PROTEIN DERIVATIVE 5 TU/0.1 ML SYG ID ONE (15:45)
[2018-04-29 16:06] VITALS: BP 113/72
[2018-04-29] MEDS: QUEtiapine FUMARATE 100 MG TABLET PO PRN (16:57)
[2018-04-29] MEDS: ACETAMINOPHEN 325 MG TABLET PO PRN (16:57)
[2018-04-29] MEDS: ZOLPIDEM TARTRATE 10 MG TABLET PO PRN (21:08)
[2018-04-30 01:05] VITALS: BP 120/75
[2018-04-30] MEDS: DIVALPROEX SODIUM 500 MG DR TABLET PO SCH ×2 (09:23→20:55)
[2018-04-30 09:24] VITALS: BP 13/72
[2018-04-30] MEDS: NICOTINE 14 MG/24 HOUR PATCH TD SCH (09:24)
[2018-04-30] MEDS: COLLOIDAL OATMEAL/DIMETH 227 GM LOTION TP SCH ×3 (09:24→16:25)
[2018-04-30] MEDS: BENZTROPINE MESYLATE 1 MG TABLET PO SCH ×2 (09:25→20:55)
[2018-04-30] MEDS: LORazepam 1 MG TABLET PO PRN ×2 (12:10→18:17)
[2018-04-30] MEDS: ONDANSETRON HCL 4 MG TABLET PO PRN (13:36)
[2018-04-30 17:24] VITALS: BP 150/97
[2018-04-30] MEDS: ACETAMINOPHEN 325 MG TABLET PO PRN (18:15)
[2018-04-30 18:17] VITALS: BP 140/85
[2018-05-01 01:54] VITALS: BP 121/77
[2018-05-01 08:16] VITALS: BP 102/53
[2018-05-01] MEDS: COLLOIDAL OATMEAL/DIMETH 227 GM LOTION TP SCH ×3 (09:30→16:50)
[2018-05-01] MEDS: DIVALPROEX SODIUM 500 MG DR TABLET PO SCH ×2 (09:31→20:55)
[2018-05-01] MEDS: BENZTROPINE MESYLATE 1 MG TABLET PO SCH ×2 (09:31→20:55)
[2018-05-01] MEDS: QUEtiapine FUMARATE 100 MG TABLET PO PRN (09:32)
[2018-05-01] MEDS: LORazepam 1 MG TABLET PO PRN ×2 (09:32→18:41)
[2018-05-01] MEDS: NICOTINE 14 MG/24 HOUR PATCH TD SCH (09:32)
[2018-05-01] MEDS: FLUoxetine HCL 20 MG CAPSULE PO SCH (12:20)
[2018-05-01 17:29] VITALS: BP 107/66
[2018-05-01] MEDS: ZOLPIDEM TARTRATE 10 MG TABLET PO PRN (21:15)
[2018-05-02 01:19] VITALS: BP 109/68
[2018-05-02 08:01] VITALS: BP 107/65
[2018-05-02] MEDS: COLLOIDAL OATMEAL/DIMETH 227 GM LOTION TP SCH ×3 (08:50→17:01)
[2018-05-02] MEDS: NICOTINE 14 MG/24 HOUR PATCH TD SCH (08:50)
[2018-05-02] MEDS: LORazepam 1 MG TABLET PO PRN ×2 (08:50→17:48)
[2018-05-02] MEDS: BENZTROPINE MESYLATE 1 MG TABLET PO SCH ×2 (08:50→20:04)
[2018-05-02] MEDS: FLUoxetine HCL 20 MG CAPSULE PO SCH (08:50)
[2018-05-02] MEDS: DIVALPROEX SODIUM 500 MG DR TABLET PO SCH ×2 (08:50→20:04)
[2018-05-02] MEDS: QUEtiapine FUMARATE 100 MG TABLET PO PRN ×2 (08:51→17:47)
[2018-05-02] MEDS: IBUPROFEN 400 MG TABLET PO PRN (13:56)
[2018-05-02 16:11] VITALS: BP 121/69
[2018-05-03 06:51] VITALS: BP 110/68
[2018-05-03] MEDS: COLLOIDAL OATMEAL/DIMETH 227 GM LOTION TP SCH ×3 (08:25→17:18)
[2018-05-03] MEDS: BENZTROPINE MESYLATE 1 MG TABLET PO SCH ×2 (08:25→20:22)
[2018-05-03] MEDS: DIVALPROEX SODIUM 500 MG DR TABLET PO SCH ×2 (08:25→20:21)
[2018-05-03] MEDS: FLUoxetine HCL 20 MG CAPSULE PO SCH (08:25)
[2018-05-03] MEDS: NICOTINE 14 MG/24 HOUR PATCH TD SCH (08:26)
[2018-05-03 08:32] VITALS: BP 100/60
[2018-05-03 12:38] VITALS: BP 104/72
[2018-05-03] MEDS: IBUPROFEN 400 MG TABLET PO PRN (12:38)
[2018-05-03 16:07] VITALS: BP 139/88
[2018-05-03] MEDS: ACETAMINOPHEN 325 MG TABLET PO PRN (19:12)
[2018-05-03] MEDS: ZOLPIDEM TARTRATE 10 MG TABLET PO PRN (21:17)
[2018-05-04] VITALS: BP 100/74
[2018-05-04 08:00] VITALS: BP 105/60
[2018-05-04] MEDS: FLUoxetine HCL 20 MG CAPSULE PO SCH (08:42)
[2018-05-04] MEDS: BENZTROPINE MESYLATE 1 MG TABLET PO SCH ×2 (08:42→20:07)
[2018-05-04] MEDS: DIVALPROEX SODIUM 500 MG DR TABLET PO SCH ×2 (08:42→20:08)
[2018-05-04] MEDS: NICOTINE 14 MG/24 HOUR PATCH TD SCH (08:43)
[2018-05-04] MEDS: LORazepam 1 MG TABLET PO PRN (08:43)
[2018-05-04] MEDS: COLLOIDAL OATMEAL/DIMETH 227 GM LOTION TP SCH ×3 (09:10→16:43)
[2018-05-04] MEDS: QUEtiapine FUMARATE 100 MG TABLET PO PRN (10:35)
[2018-05-04 16:09] VITALS: BP 132/98
[2018-05-04] MEDS: MAG HYDROX/AL HYDROX/SIMETH ES 30 ML SUSPENSION UDCUP PO PRN (20:24)
[2018-05-04] MEDS: ZOLPIDEM TARTRATE 10 MG TABLET PO PRN (21:06)
[2018-05-05 06:03] VITALS: BP 110/71
[2018-05-05 08:24] VITALS: BP_SYST 106; BP_SYST 112; BP_DIAS 66; BP_DIAS 80
[2018-05-05] MEDS: FLUoxetine HCL 20 MG CAPSULE PO SCH (08:42)
[2018-05-05] MEDS: DIVALPROEX SODIUM 500 MG DR TABLET PO SCH ×2 (08:42→20:27)
[2018-05-05] MEDS: BENZTROPINE MESYLATE 1 MG TABLET PO SCH ×2 (08:43→20:27)
[2018-05-05 08:57] VITALS: BP 112/80
[2018-05-05] MEDS: IBUPROFEN 400 MG TABLET PO PRN (08:57)
[2018-05-05] MEDS: COLLOIDAL OATMEAL/DIMETH 227 GM LOTION TP SCH ×3 (09:00→17:06)
[2018-05-05] MEDS: NICOTINE 14 MG/24 HOUR PATCH TD SCH (09:18)
[2018-05-05] MEDS: LORazepam 1 MG TABLET PO PRN (12:53)
[2018-05-05] MEDS: QUEtiapine FUMARATE 100 MG TABLET PO PRN (12:53)
[2018-05-05 16:18] VITALS: BP 116/76
[2018-05-05] MEDS: ZOLPIDEM TARTRATE 10 MG TABLET PO PRN (21:10)
[2018-05-06 08:22] VITALS: BP 100/54
[2018-05-06] MEDS: COLLOIDAL OATMEAL/DIMETH 227 GM LOTION TP SCH ×2 (09:05→13:13)
[2018-05-06] MEDS: LORazepam 1 MG TABLET PO PRN (09:06)
[2018-05-06] MEDS: DIVALPROEX SODIUM 500 MG DR TABLET PO SCH (09:06)
[2018-05-06] MEDS: FLUoxetine HCL 20 MG CAPSULE PO SCH (09:06)
[2018-05-06] MEDS: BENZTROPINE MESYLATE 1 MG TABLET PO SCH (09:06)
[2018-05-06] MEDS: NICOTINE 14 MG/24 HOUR PATCH TD SCH (09:47)
[2018-05-06] MEDS ORDERED: DIVA-78 PO ×2 (12:25)
[2018-05-06] MEDS ORDERED: FLUO-191 PO (12:25)
[2018-05-06] MEDS ORDERED: BENZ1TAB10 PO (12:25)
[2018-05-06] MEDS: QUEtiapine FUMARATE 100 MG TABLET PO PRN (14:54)
== END 2018-05-06 15:40 | disposition home or self-care (01) | DRG 885 ==
LOC: EMS 08:45 → B3A 11:19
DX: F25.1 Schizoaffective disorder, depressive type (principal); R45.851 Suicidal ideations; E46 Unspecified protein-calorie malnutrition; F17.210 Nicotine dependence, cigarettes, uncomplicated; K21.9 Gastro-esophageal reflux disease without esophagitis; E55.9 Vitamin D deficiency, unspecified; F60.9 Personality disorder, unspecified; G47.00 Insomnia, unspecified; L40.9 Psoriasis, unspecified; R73.9 Hyperglycemia, unspecified; F10.10 Alcohol abuse, uncomplicated; F41.9 Anxiety disorder, unspecified; R45.87 Impulsiveness; Z88.1 Allergy status to other antibiotic agents; Z59.0 Homelessness; Z79.899 Other long term (current) drug therapy
CPT/HCPCS: 83036; 87081; 90686; G0480; Q0162